=== PATIENT | male | born 1980 | race Caucasian/White ===

== ENCOUNTER 2020-11-30 10:02 | Emergency (ER) | payer OTHER ==
[2020-11-30 10:20] VITALS: BP 153/86; PULSE 76; TEMP 98.1; BMI 30.6
[2020-11-30 11:24] LABS: BASO % 0.6 % (0-2.0); EOS % 6.8 % (0-4.5); HEMATOCRIT 41.9 % (35.4-49); HEMOGLOBIN 14.7 GM/dL (11.7-16.9); LYMPH % 32.9 % (8-40); MCH 29.5 pg (25.7-33.7); MCHC 35.1 g/dl (32.0-35.9); MEAN CELL VOLUME 84.1 fl (80-96); MEAN PLT VOLUME 8.5 fl (7.5-11.1); NEUT % 51.7 % (42.8-82.8); PLATELET COUNT 246 K/MM3 (134-434); RBC 4.98 M/mm3 (4.00-5.60); RDW 13.7 % (11.9-15.9); WHITE BLOOD COUNT 6.3 K/mm3 (4.0-10.0)
[2020-11-30 11:30] LABS: INR 0.98 (0.83-1.09); PROTHROMBIN TIME (PATIENT) 11.9 SEC (9.7-13.0)
[2020-11-30 11:41] LABS: CHLORIDE 105 mmol/L (98-107); POTASSIUM 5.2 mmol/L (3.5-5.1); SODIUM 141 mmol/L (136-145)
[2020-11-30 11:44] LABS: ANION GAP 7 MMOL/L (8-16); BLOOD UREA NITROGEN 17.3 mg/dL (7-18); CALCIUM 9.5 mg/dL (8.5-10.1); CO2 28 mmol/L (21-32); GLUCOSE,RANDOM 93 mg/dL (74-106); LIPASE 61 U/L (73-393)
[2020-11-30 11:47] LABS: SGOT/AST 33 U/L (15-37); SGPT/ALT 50 U/L (13-61)
[2020-11-30 11:48] LABS: TOT PROT 7.7 g/dl (6.4-8.2)
[2020-11-30 11:49] LABS: ALK PHOS 84 U/L (45-117)
[2020-11-30 11:51] LABS: BILIRUBIN,TOTAL 0.8 mg/dL (0.2-1)
== END 2020-11-30 14:29 | disposition left against medical advice (07) ==
LOC: JER 10:02
DX: Q93.3 Deletion of short arm of chromosome 4 (principal); I45.10 Unspecified right bundle-branch block; M54.2 Cervicalgia
CPT/HCPCS: 36415; 71046-TC-FY; 76705-TC; 80053; 82550; 82553; 83690; 84484; 85025; 85610; 93005; 93010; 99283-25; C9803; U0003